=== PATIENT | female | born 1990 | race Caucasian/White ===

== ENCOUNTER 2021-07-13 16:55 | Emergency (ER) | payer MEDICAID ==
[~2021-07-13] VITALS: Ht 162.6 cm; Wt 136.1 kg
[2021-07-13 17:12] VITALS: BP_SYST 158
[2021-07-13 17:37] VITALS: BP_SYST 158
== END 2021-07-13 17:37 ==
LOC: SED 16:55
DX: Z02.89 Encounter for other administrative examinations (principal); Z79.899 Other long term (current) drug therapy
CPT/HCPCS: 82962; 99283